=== PATIENT | female | born 1935 | race Caucasian/White ===

== ENCOUNTER 2017-02-22 10:58 | Observation (INO) | payer MEDICARE ==
--- NOTE | 2017-02-22 11:47 | PD ---
HPI Chief Complaint: Syncope/Near-Syncope Time Seen by Provider: 11:45 Travel History International Travel<30 days: No Contact w/Intl Traveler<30days: No Traveled to known affect area: No History of Present Illness HPI 81-year-old female presents emergency department via EMS for evaluation after she had a syncopal episode this morning while on the toilet trying to have a bowel movement. Patient's was helping her onto the toilet because she felt weak. Patient's caught her and she did not fall onto the floor or hit head during syncopal episode. Patient denies any injuries or pain associated with this fall. Patient has no focal neurological deficits. Patient' s son states his parents moving down from [place] approx 6 weeks ago. He has been helping take care of them. Son states she has Patient has been evaluated by her PCP for possible early onset dementia. They just recently saw Dr. Cook, the neurologist and she was found without any neuro deficits. She has no substantial cardiac history. She is denying any chest pain, shortness of breath , abdominal pain, nausea, vomiting or diarrhea at this time. [facility] Social History Tobacco Use: No Allergies-Medications (Allergen,Severity, Reaction): Coded Allergies: No Known Allergies (Unverified , 02/22/17) Reported Meds & Prescriptions Reported Meds & Active Scripts Active Reported Megestrol (Megestrol Acetate) 20 Mg Tab 10 Mg PO DAILY Prednisone 20 Mg Tab 20 Mg PO DIRECTED 40 MG twice a day x 3 days, then 20 MG daily x 3 days, then 10 MG daily x 3 days Zantac (Ranitidine HCl) 150 Mg Tab 150 Mg PO BID Levothyroxine (Levothyroxine Sodium) 25 Mcg Tab 25 Mcg PO DAILY Review of Systems Except as stated in HPI: all other systems reviewed are Neg Physical Exam Narrative GENERAL: Well-nourished, well-developed 81-year-old female patient in no acute respiratory distress. SKIN: Focused skin assessment warm/dry. HEAD: Normocephalic. Atraumatic. NEUROLOGICAL: Awake and alert. Cranial nerves II through XII intact. Motor and sensory grossly within normal limits. Five out of 5 muscle strength in all muscle groups. Normal speech. EYES: No scleral icterus. No injection or drainage. NECK: Supple, trachea midline. No JVD or lymphadenopathy. CARDIOVASCULAR: Regular rate and rhythm without murmurs, gallops, or rubs. RESPIRATORY: Breath sounds equal bilaterally. No accessory muscle use. GASTROINTESTINAL: Abdomen soft, non-tender, nondistended. MUSCULOSKELETAL: No obvious deformity, ecchymosis, erythema, cyanosis, or edema. BACK: Nontender without obvious deformity. No CVA tenderness. Data Data Last Documented VS Vital Signs Date Time Temp Pulse Resp B/P (MAP) Pulse Ox O2 Delivery O2 Flow Rate FiO2 02/22/17 14:20 92 14 133/62 (85) 96 Room Air Orders Orders Electrocardiogram (02/22/17 11:27) Complete Blood Count With Diff (02/22/17 11:27) Comprehensive Metabolic Panel (02/22/17 11:27) Magnesium (Mg) (02/22/17 11:27) Ckmb (Isoenzyme) Profile (02/22/17 11:27) Troponin I (02/22/17 11:27) Act Partial Throm Time (Ptt) (02/22/17 11:27) Urinalysis - C+S If Indicated (02/22/17 11:27) Chest, Single Ap (02/22/17 11:27) Ct Brain W/O Iv Contrast(Rout) (02/22/17 11:27) Blood Glucose (02/22/17 11:27) Ecg Monitoring (02/22/17 11:27) Iv Access Insert/Monitor (02/22/17 11:27) Oximetry (02/22/17 11:27) Urine Culture (02/22/17 11:45) Ceftriaxone Inj (Rocephin Inj) (02/22/17 13:15) Potassium Chloride (Kcl) (02/22/17 13:15) Prothrombin Time / Inr (Pt) (02/22/17 13:39) Admit Order (Ed Use Only) (02/22/17 14:31) Labs Laboratory Tests Test 02/22/17 11:41 02/22/17 11:45 02/22/17 14:04 White Blood Count 9.6 TH/MM3 Red Blood Count 3.80 MIL/MM3 Hemoglobin 11.5 GM/DL Hematocrit 34.3 % Mean Corpuscular Volume 90.2 FL Mean Corpuscular Hemoglobin 30.3 PG Mean Corpuscular Hemoglobin Concent 33.6 % Red Cell Distribution Width 15.5 % Platelet Count 254 TH/MM3 Mean Platelet Volume 6.9 FL Neutrophils (%) (Auto) 53.5 % Lymphocytes (%) (Auto) 36.9 % Monocytes (%) (Auto) 8.3 % Eosinophils (%) (Auto) 1.0 % Basophils (%) (Auto) 0.3 % Neutrophils # (Auto) 5.1 TH/MM3 Lymphocytes # (Auto) 3.5 TH/MM3 Monocytes # (Auto) 0.8 TH/MM3 Eosinophils # (Auto) 0.1 TH/MM3 Basophils # (Auto) 0.0 TH/MM3 CBC Comment DIFF FINAL Differential Comment Activated Partial Thromboplast Time 19.0 SEC Blood Urea Nitrogen 10 MG/DL Creatinine 0.85 MG/DL Random Glucose 77 MG/DL Total Protein 5.8 GM/DL Albumin 2.7 GM/DL Calcium Level 7.9 MG/DL Magnesium Level 1.9 MG/DL Alkaline Phosphatase 75 U/L Aspartate Amino Transf (AST/SGOT) 17 U/L Alanine Aminotransferase (ALT/SGPT) 19 U/L Total Bilirubin 0.4 MG/DL Sodium Level 135 MEQ/L Potassium Level 3.3 MEQ/L Chloride Level 102 MEQ/L Carbon Dioxide Level 21.3 MEQ/L Anion Gap 12 MEQ/L Estimat Glomerular Filtration Rate 64 ML/MIN Total Creatine Kinase 41 U/L Troponin I LESS THAN 0.02 NG/ML Urine Color YELLOW Urine Turbidity HAZY Urine pH 7.0 Urine Specific [place] 1.024 Urine Protein 30 mg/dL Urine Glucose (UA) NEG mg/dL Urine Ketones NEG mg/dL Urine Occult Blood SMALL Urine Nitrite NEG Urine Bilirubin NEG Urine Urobilinogen 2.0 MG/DL Urine Leukocyte Esterase LARGE Urine RBC 3 /hpf Urine WBC 11 /hpf Urine Squamous Epithelial Cells 24 /hpf Urine Amorphous Sediment OCC Urine Bacteria OCC /hpf Urine Hyaline Casts 13 /lpf Urine Mucus FEW /lpf Microscopic Urinalysis Comment CULTURE INDICATED Prothrombin Time 10.9 SEC Prothromb Time International Ratio 1.1 RATIO MDM Medical Decision Making Medical Screen Exam Complete: Yes Emergency Medical Condition: Yes Differential Diagnosis Differential diagnoses include but not limited to arrhythmia, electrolyte abnormality, vasovagal syndrome, urinary tract infection Narrative Course Patient placed on monitor, IV obtained blood work sent to the lab. CBC, CMP, magnesium, troponin, CK-MB, PT/INR, UA, chest x-ray, CT brain ordered and pending. CBC shows anemia with hemoglobin 11.5, otherwise no acute abnormality CMP shows mild hypokalemia at 3.3, 30 mEq KCl by mouth given Mag within normal limits at 1.9 Trop less than 0.02 CK-MB 41. UA is reflective of a UTI with WBCs, bacteria and esterase. 1G IV Rocephin ordered. Based on patient's symptoms, clinical presentation, lab results, radiological results, vital sign review and physical exam it would be prudent to admit the patient to the hospital for further evaluation related to her age coupled with syncope and the UTI. Dr. Ruiz accepts admission. Patient admitted for observation at this time. Diagnosis Primary Impression: Syncope Qualified Codes: R55 - Syncope and collapse Additional Impression: UTI (urinary tract infection) Qualified Codes: N39.0 - Urinary tract infection, site not specified Admitting Information Admitting Physician Requests: Observation Giovanna Rios Feb 22, 2017 11:46
[2017-02-22 11:53] LABS: AUTOMATED NEUTROPHIL # 5.1 TH/MM3 (1.8-7.7); BASOPHIL % 0.3 % (0.0-2.0); EOSINOPHIL # 0.1 TH/MM3 (0-0.4); HEMATOCRIT 34.3 % (35.0-46.0); HEMOGLOBIN 11.5 GM/DL (11.6-15.3); LYMPH % 36.9 % (9.0-44.0); LYMPHOCYTE # 3.5 TH/MM3 (1.0-4.8); MEAN CELL VOLUME 90.2 FL (80.0-100.0); MEAN CORPUSCULAR HEMOGLOBIN 30.3 PG (27.0-34.0); MEAN CORPUSCULAR HGB CONC 33.6 % (32.0-36.0); MEAN PLATELET VOLUME 6.9 FL (7.0-11.0); MONO % 8.3 % (0.0-8.0); MONOCYTE # 0.8 TH/MM3 (0-0.9); NEUT % 53.5 % (16.0-70.0); PLATELET COUNT 254 TH/MM3 (150-450); RED CELL DISTRIBUTION WIDTH 15.5 % (11.6-17.2); WHITE BLOOD COUNT 9.6 TH/MM3 (4.0-11.0)
[2017-02-22 12:10] LABS: ALBUMIN 2.7 GM/DL (3.4-5.0); AST (GOT) 17 U/L (15-37); BICARBONATE 21.3 MEQ/L (21.0-32.0); BLOOD UREA NITROGEN 10 MG/DL (7-18); CALCIUM 7.9 MG/DL (8.5-10.1); CHLORIDE 102 MEQ/L (98-107); GLUCOSE,RANDOM 77 MG/DL (74-106); MAGNESIUM 1.9 MG/DL (1.5-2.5); SODIUM (NA) 135 MEQ/L (136-145)
[2017-02-22 12:14] LABS: ALKALINE PHOSPHATASE 75 U/L (45-117); ALT (GPT) 19 U/L (10-53); CREATININE 0.85 MG/DL (0.50-1.00); GLOMERULAR FILTRATION RATE 64 ML/MIN (>89); TOTAL BILIRUBIN ADULT 0.4 MG/DL (0.2-1.0); TOTAL PROTEIN 5.8 GM/DL (6.4-8.2); TROPONIN I LESS THAN 0.02 NG/ML (0.02-0.05)
[2017-02-22 12:26] VITALS: BP 164/68; PULSE 98; RESP 17; O2SAT 100
[2017-02-22 12:30] VITALS: BP 164/68; PULSE 98; RESP 17; O2SAT 100
[2017-02-22] MEDS ORDERED: ZANT150T2 PO (12:33)
[2017-02-22] MEDS ORDERED: MEGE20TA PO (12:33)
[2017-02-22] MEDS ORDERED: PRED20 PO (12:33)
[2017-02-22] MEDS ORDERED: LEVO25TA4 PO (12:33)
[2017-02-22 12:37] LABS: AMORPHOUS SEDIMENT, URINE OCC; BACTERIA, URINE OCC /hpf; BILIRUBIN, URINE NEG (NEG); BLOOD, URINE SMALL (NEG); GLUCOSE,URINE NEG (NEG); HYALINE CAST, URINE 13 /lpf (RARE); KETONE, URINE NEG (NEG); MUCUS URINE FEW /lpf (OCC); NITRITE,URINE NEG (NEG); SQUAMOUS EPITHELIAL CELL URINE 24 /hpf (0-5); URINE COLOR YELLOW (YELLW/STRAW); URINE LEUKOCYTE ESTERASE LARGE (NEG)
--- NOTE | 2017-02-22 12:37 | RADRPT ---
EXAM DATE/TIME: 02/22/2017 11:41 [facility] COMPARISON: No previous studies available for comparison. INDICATIONS : Syncope, shortness of breath. MEDICAL HISTORY : None. SURGICAL HISTORY : None. ENCOUNTER: Initial ACUITY: 1 day PAIN SCORE: 0/10 LOCATION: Bilateral chest FINDINGS: A single view of the chest demonstrates the lungs to be symmetrically and mildly hyperaerated without evidence of mass, infiltrate or effusion. The cardiomediastinal contours are unremarkable. Osseous structures are intact. CONCLUSION: The lungs are clear. Rudy Howard MD on February 22, 2017 at 12:34 Board Certified Radiologist. This report was verified electronically.
--- NOTE | 2017-02-22 12:50 | RADRPT ---
EXAM DATE/TIME: 02/22/2017 12:21 [facility] COMPARISON: No previous studies available for comparison. INDICATIONS : Dizziness. RADIATION DOSE: 56.35 CTDIvol (mGy) MEDICAL HISTORY : None SURGICAL HISTORY : None. ENCOUNTER: Initial ACUITY: 1 day PAIN SCALE: 0/10 LOCATION: cranial TECHNIQUE: Multiple contiguous axial images were obtained of the head. Using automated exposure control and adj ustment of the mA and/or kV according to patient size, radiation dose was kept as low as reasonably a chievable to obtain optimal diagnostic quality images. DICOM format image data is available electro nically for review and comparison. FINDINGS: CEREBRUM: The ventricles are normal for age. No evidence of midline shift, mass lesion, hemorrhage or acute in farction. Decreased attenuation in the supratentorial white matter is characteristic of ischemic hernandez nge. No extra-axial fluid collections are seen. POSTERIOR FOSSA: The cerebellum and brainstem are intact. The 4th ventricle is midline. The cerebellopontine angle i s unremarkable. EXTRACRANIAL: The visualized portion of the orbits is intact. SKULL: The calvaria is intact. No evidence of skull fracture. CONCLUSION: 1. Age-appropriate ischemic atrophy. 2. No acute findings in the brain. Rudy Howard MD on February 22, 2017 at 12:48 Board Certified Radiologist. This report was verified electronically.
[2017-02-22] MEDS ORDERED: cefTRIAXone INJ 1,000 MG in SODIUM CHLORIDE 0.9% INJ 100 ML IV ONE (13:15)
[2017-02-22] MEDS ORDERED: POTASSIUM CHLORIDE 10 MEQ CONTROLLED RELEASE TAB PO ONE (13:15)
[2017-02-22 14:20] VITALS: BP 133/62; PULSE 92; RESP 14; O2SAT 96
[2017-02-22 14:26] LABS: INTERNATIONAL NORMALIZED RATIO 1.1 RATIO; PROTHROMBIN TIME - PATIENT 10.9 SEC (9.8-11.6)
[2017-02-22] MEDS ORDERED: MAGNESIUM HYDROXIDE SUSP 30 ML CUP PO PRN (14:45)
[2017-02-22] MEDS ORDERED: NALOXONE HCL 0.4 MG/ML AMP IV PUSH PRN (14:45)
[2017-02-22] MEDS ORDERED: SODIUM CHLORIDE 0.9% FLUSH 10 ML FLUSH IV FLUSH PRN (14:45)
[2017-02-22] MEDS ORDERED: ONDANSETRON HCL 4 MG/2 ML VIAL IVP PRN (14:45)
[2017-02-22] MEDS: SODIUM CHLOR 0.9% 1000 ML INJ 1,000 ML IV SCH (16:28)
[2017-02-22 16:45] LABS: TROPONIN I 0.03 NG/ML (0.02-0.05)
[2017-02-22 16:47] VITALS: BP 157/67; PULSE 85; RESP 18; TEMP 97.6; O2SAT 99
--- NOTE | 2017-02-22 17:01 | HHI.HP ---
[facility] Kailash Laurent MD Admission Diagnosis syncope Diagnoses: (1) UTI (urinary tract infection) Diagnosis: Principal (2) Syncope Diagnosis: Principal Travel History International Travel<30 Days: No Contact w/Intl Traveler <30 Da: No Traveled to Known Affected Are: No History of Present Illness Mrs. Gloria is an 81-year-old female. She came into the hospital today after having a syncopal episode at home. Patient's says patient may have been down approximately 1 to 3 minutes. For several weeks she has been feeling weak and she has suspicions of having polymyalgia rheumatica at baseline. She felt ill and had to go to the bathroom. When she was on the toilet she had an episode of diarrhea and then nausea. She did not vomit but she became syncopal and this is where she lost consciousness. Pulmonary workup shows no abnormal heart rhythm. She does have a urinary tract infection this may be contributory. Hypothyroidism is present at baseline and this could be contributory also. Additionally, a vasovagal etiology suspected given the correlation with defecation and nausea. Review of Systems Constitutional: DENIES: Fever, Chills, Change in appetite Eyes: DENIES: Blurred vision, Diplopia, Eye inflammation Ears, nose, mouth, throat: DENIES: Hearing loss, Vertigo, Nasal discharge Respiratory: DENIES: Cough, Wheezing, Shortness of breath Cardiovascular: COMPLAINS OF: Syncope, DENIES: Chest pain, Palpitations Gastrointestinal: COMPLAINS OF: Diarrhea, DENIES: Abdominal pain, Black stools , Bloody stools Musculoskeletal: COMPLAINS OF: Muscle aches, Stiffness, DENIES: Joint pain, Joint Swelling Integumentary: DENIES: Abnormal pigmentation, Pruritus, Rash, Nail changes Hematologic/lymphatic: DENIES: Bruising, Lymphadenopathy Immunologic/allergic: DENIES: Eczema, Urticaria Neurologic: DENIES: Abnormal gait, Headache, Paresthesias Psychiatric: DENIES: Anxiety, Confusion, Hallucinations Past Family Social History Past Medical History Hypothyroidism Poor appetite Possible polymyalgia rheumatica Suspected early dementia *Esophageal reflux disease Past Surgical History History of cholecystectomy Reported Medications Reported Meds & Active Scripts Active Reported Megestrol (Megestrol Acetate) 20 Mg Tab 10 Mg PO DAILY Prednisone 20 Mg Tab 20 Mg PO DIRECTED 40 MG twice a day x 3 days, then 20 MG daily x 3 days, then 10 MG daily x 3 days Zantac (Ranitidine HCl) 150 Mg Tab 150 Mg PO BID Levothyroxine (Levothyroxine Sodium) 25 Mcg Tab 25 Mcg PO DAILY Allergies: Coded Allergies: No Known Allergies (Unverified , 02/22/17) Active Ordered Medications Administered Medications Medications (Trade) Dose Ordered Sig/Juan Route PRN Reason Start Time Stop Time Status Last Admin Dose Admin Sodium Chloride 1,000 ml @ 100 mls/hr Q10H IV 02/22/17 15:00 02/22/17 16:28 Family History Breast cancer in sister Hypertension in father Social History No history of smoking, alcohol abuse, or illicit drug abuse Physical Exam Vital Signs Vital Signs Date Time Temp Pulse Resp B/P (MAP) Pulse Ox O2 Delivery O2 Flow Rate FiO2 02/22/17 16:47 97.6 85 18 157/67 (97) 99 02/22/17 14:20 92 14 133/62 (85) 96 Room Air 02/22/17 12:30 98 17 164/68 (100) 100 Room Air 02/22/17 12:26 98 17 164/68 (100) 100 Room Air Physical Exam GENERAL: NAD, A&Ox2 HEAD: Normocephalic. NECK: Supple, trachea midline. No lymphadenopathy. EYES: No scleral icterus. No injection or drainage. CARDIOVASCULAR: Regular rate and rhythm without murmurs, gallops, or rubs. RESPIRATORY: Breath sounds equal bilaterally. No accessory muscle use. GASTROINTESTINAL: Abdomen soft, non-tender, nondistended. MUSCULOSKELETAL: No cyanosis, or edema. SKIN: Warm and dry. NEURO: No focal neurological deficitis. Laboratory Laboratory Tests Test 02/22/17 11:41 02/22/17 11:45 02/22/17 14:04 02/22/17 15:45 White Blood Count 9.6 Red Blood Count 3.80 Hemoglobin 11.5 Hematocrit 34.3 Mean Corpuscular Volume 90.2 Mean Corpuscular Hemoglobin 30.3 Mean Corpuscular Hemoglobin Concent 33.6 Red Cell Distribution Width 15.5 Platelet Count 254 Mean Platelet Volume 6.9 Neutrophils (%) (Auto) 53.5 Lymphocytes (%) (Auto) 36.9 Monocytes (%) (Auto) 8.3 Eosinophils (%) (Auto) 1.0 Basophils (%) (Auto) 0.3 Neutrophils # (Auto) 5.1 Lymphocytes # (Auto) 3.5 Monocytes # (Auto) 0.8 Eosinophils # (Auto) 0.1 Basophils # (Auto) 0.0 CBC Comment DIFF FINAL Differential Comment Activated Partial Thromboplast Time 19.0 Blood Urea Nitrogen 10 Creatinine 0.85 Random Glucose 77 Total Protein 5.8 Albumin 2.7 Calcium Level 7.9 Magnesium Level 1.9 Alkaline Phosphatase 75 Aspartate Amino Transf (AST/SGOT) 17 Alanine Aminotransferase (ALT/SGPT) 19 Total Bilirubin 0.4 Sodium Level 135 Potassium Level 3.3 Chloride Level 102 Carbon Dioxide Level 21.3 Anion Gap 12 Estimat Glomerular Filtration Rate 64 Total Creatine Kinase 41 33 Troponin I LESS THAN 0.02 0.03 Urine Color YELLOW Urine Turbidity HAZY Urine pH 7.0 Urine Specific [place] 1.024 Urine Protein 30 Urine Glucose (UA) NEG Urine Ketones NEG Urine Occult Blood SMALL Urine Nitrite NEG Urine Bilirubin NEG Urine Urobilinogen 2.0 Urine Leukocyte Esterase LARGE Urine RBC 3 Urine WBC 11 Urine Squamous Epithelial Cells 24 Urine Amorphous Sediment OCC Urine Bacteria OCC Urine Hyaline Casts 13 Urine Mucus FEW Microscopic Urinalysis Comment CULTURE INDICATED Prothrombin Time 10.9 Prothromb Time International Ratio 1.1 Date/Time Source Procedure Growth Status 02/22/17 11:45 Urine Random Urine Urine Culture Pending Received Result Diagram: 02/22/17 1141 02/22/17 1141 Caprini VTE Risk Assessment Caprini VTE Risk Assessment: No/Low Risk (score <= 1) Caprini Risk Assessment Model Point Value = 1 Point Value = 2 Point Value = 3 Point Value = 5 Age 41-60 Minor surgery BMI > 25 kg/m2 Swollen legs Varicose veins or History of unexplained or recurrent spontaneous Oral contraceptives or hormone replacement Sepsis (< 1 month) Serious lung disease, including pneumonia (< 1 month) Abnormal pulmonary function Acute myocardial infarction Congestive heart failure (< 1 month) History of inflammatory bowel disease Medical patient at bed rest Age 61-74 Arthroscopic surgery Major open surgery (> 45 min) Laparoscopic surgery (> 45 min) Malignancy Confined to bed (> 72 hours) Immobilizing plaster cast Central venous access Age >= 75 History of VTE Family history of VTE Factor V Leiden Prothrombin [id number] Lupus anticoagulant Anticardiolipin antibodies Elevated serum homocysteine Heparin-induced thrombocytopenia Other congenital or acquired thrombophilia Stroke (< 1 month) Elective arthroplasty Hip, pelvis, or leg fracture Acute spinal cord injury (< 1 month) Prophylaxis Regimen Total Risk Factor Score Risk Level Prophylaxis Regimen 0-1 Low Early ambulation 2 Moderate Order ONE of the following: *Sequential Compression Device (SCD) *Heparin 5000 units SQ BID 3-4 Higher Order ONE of the following medications: *Heparin 5000 units SQ TID *Enoxaparin/Lovenox 40 mg SQ daily (WT < 150 kg, CrCl > 30 mL/min) *Enoxaparin/Lovenox 30 mg SQ daily (WT < 150 kg, CrCl > 10-29 mL/min) *Enoxaparin/Lovenox 30 mg SQ BID (WT < 150 kg, CrCl > 30 mL/min) AND/OR *Sequential Compression Device (SCD) 5 or more Highest Order ONE of the following medications: *Heparin 5000 units SQ TID (Preferred with Epidurals) *Enoxaparin/Lovenox 40 mg SQ daily (WT < 150 kg, CrCl > 30 mL/min) *Enoxaparin/Lovenox 30 mg SQ daily (WT < 150 kg, CrCl > 10-29 mL/min) *Enoxaparin/Lovenox 30 mg SQ BID (WT < 150 kg, CrCl > 30 mL/min) AND *Sequential Compression Device (SCD) Assessment and Plan Problem List: (1) UTI (urinary tract infection) ICD Code: N39.0 - Urinary tract infection, site not specified Status: Acute (2) Syncope ICD Code: R55 - Syncope and collapse Status: Acute Assessment and Plan 81-year-old female admitted secondary to syncope, with UTI Urinary tract infection Continue Rocephin Follow urine culture UTI may be contributory to patient's syncopal episode Syncope 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 cardiac enzymes Monitor serial EKGs IV hydration Evaluate with carotid ultrasound Taking orthostatic blood pressure checks Based on history etiology may be vasovagal with contributory factors such as UTI and a possible underlying polymyalgia rheumatica Possible polymyalgia rheumatica Continue prednisone Gastroesophageal reflux disease Continue Zantac Hypothyroidism Check thyroid levels Continue supplement DVT prophylaxis SCDs Problem Qualifiers (1) UTI (urinary tract infection): Qualified Codes: N39.0 - Urinary tract infection, site not specified (2) Syncope: Qualified Codes: R55 - Syncope and collapse Sean Ruiz MD Feb 22, 2017 17:00
[2017-02-22] MEDS ORDERED: PILL SPLITTER OTHER PRN (17:15)
--- NOTE | 2017-02-22 17:16 | RADRPT ---
EXAM DATE/TIME: 02/22/2017 15:04 [facility] COMPARISON: No previous studies available for comparison. INDICATIONS : Syncope. MEDICAL HISTORY : Thyroid disease. Dementia. GERD. Depression. SURGICAL HISTORY : Cholecystectomy. ENCOUNTER: Initial ACUITY: 1 day PAIN SCORE: 0/10 LOCATION: Bilateral neck PEAK SYSTOLIC VELOCITIES (cm/sec): ICA/CCA RATIO: Right: 0.9 Left: 1.2 ICA: Right: 86 Left: 146 CCA: Right: 95 Left: 126 ECA: Right: 125 Left: 96 VERTEBRAL: Right: 37 antegrade Left: 62 antegrade Elevated flow velocities and ICA/CCA ratios have been found to correlate with increased degrees of vessel stenosis, calculated as percentage of diameter relative to a normal segment of distal ICA/CCA FINDINGS: RIGHT CAROTID: No significant stenosis is visualized. The waveforms are within normal limits. LEFT CAROTID: No significant stenosis is visualized. The waveforms are within normal limits. VERTEBRAL ARTERIES: Antegrade flow is seen in both vertebral arteries. CONCLUSION: Minimal plaque formation in the left carotid bulb and proximal internal carotid artery with hemodynam ic profile characteristic of less than 50% stenosis bilaterally. Rudy Howard MD on February 22, 2017 at 17:12 Board Certified Radiologist. This report was verified electronically.
[2017-02-22] MEDS: LACTOBACILLUS ACIDOPHILUS TAB PO SCH (18:05)
[2017-02-22 19:28] VITALS: BP_SYST 139; BP_SYST 140; BP_SYST 177; BP_DIAS 67; BP_DIAS 69; BP_DIAS 77; PULSE 94; RESP 18; TEMP 98; O2SAT 99
[2017-02-22] MEDS: FAMOTIDINE 20 MG TAB PO SCH (20:51)
[2017-02-22] MEDS: SODIUM CHLORIDE 0.9% FLUSH 10 ML FLUSH IV FLUSH SCH (20:52)
[2017-02-22 21:56] LABS: TROPONIN I 0.04 NG/ML (0.02-0.05)
[2017-02-23 00:11] VITALS: BP 138/66; PULSE 99; RESP 18; TEMP 98.2; O2SAT 98
[2017-02-23] MEDS: SODIUM CHLOR 0.9% 1000 ML INJ 1,000 ML IV SCH (01:28)
[2017-02-23 03:35] VITALS: BP 147/71; PULSE 79; RESP 18; TEMP 98.1; O2SAT 97
[2017-02-23] MEDS ORDERED: LEVOTHYROXINE SODIUM 25 MCG TAB PO SCH (06:00)
[2017-02-23 07:46] VITALS: BP 162/72; PULSE 96; RESP 22; TEMP 98.1; O2SAT 99
[2017-02-23 08:00] VITALS: PULSE 89
[2017-02-23 08:03] VITALS: BP_SYST 106; BP_SYST 127; BP_DIAS 53; BP_DIAS 60; PULSE 116
[2017-02-23 08:30] LABS: AUTOMATED NEUTROPHIL # 5.4 TH/MM3 (1.8-7.7); BASOPHIL % 0.1 % (0.0-2.0); EOSINOPHIL # 0.1 TH/MM3 (0-0.4); EOSINOPHIL % 1.4 % (0.0-4.0); HEMATOCRIT 35.8 % (35.0-46.0); LYMPH % 22.1 % (9.0-44.0); LYMPHOCYTE # 1.8 TH/MM3 (1.0-4.8); MEAN CELL VOLUME 90.6 FL (80.0-100.0); MEAN CORPUSCULAR HEMOGLOBIN 30.4 PG (27.0-34.0); MEAN CORPUSCULAR HGB CONC 33.6 % (32.0-36.0); MEAN PLATELET VOLUME 6.8 FL (7.0-11.0); MONO % 9.2 % (0.0-8.0); MONOCYTE # 0.7 TH/MM3 (0-0.9); NEUT % 67.2 % (16.0-70.0); PLATELET COUNT 259 TH/MM3 (150-450); RED BLOOD COUNT 3.95 MIL/MM3 (4.00-5.30); RED CELL DISTRIBUTION WIDTH 15.2 % (11.6-17.2); WHITE BLOOD COUNT 8.1 TH/MM3 (4.0-11.0)
[2017-02-23] MEDS: FAMOTIDINE 20 MG TAB PO SCH (08:48)
[2017-02-23] MEDS: LACTOBACILLUS ACIDOPHILUS TAB PO SCH (08:48)
[2017-02-23] MEDS: SODIUM CHLORIDE 0.9% FLUSH 10 ML FLUSH IV FLUSH SCH (08:49)
[2017-02-23 08:51] LABS: THYROXINE (T4) 10.3 MCG/DL (4.8-13.9)
[2017-02-23 09:00] LABS: FREE T3 1.87 PG/ML (2.18-3.98)
[2017-02-23] MEDS ORDERED: MEGESTROL ACETATE 40 MG TAB PO SCH (09:00)
[2017-02-23] MEDS ORDERED: predniSONE 20 MG TAB PO SCH (09:00)
[2017-02-23] MEDS ORDERED: DIGO0.12 PO (11:38)
[2017-02-23] MEDS ORDERED: BACT800T5 PO (11:38)
[2017-02-23] MEDS ORDERED: LACTTAB8 PO (11:38)
[2017-02-23] MEDS ORDERED: POTA10CA PO (11:38)
--- NOTE | 2017-02-23 11:43 | HHI.DS ---
Discharge Summary Admission Date Feb 22, 2017 at 14:33 Discharge Date: Feb 23, 2017 Admitting Diagnosis syncope (1) UTI (urinary tract infection) ICD Code: N39.0 - Urinary tract infection, site not specified Diagnosis: Principal Status: Acute (2) Syncope ICD Code: R55 - Syncope and collapse Diagnosis: Principal Status: Acute Procedures None Brief History - From Admission Mrs. Gloria is an 81-year-old female. She came into the hospital today after having a syncopal episode at home. Patient's says patient may have been down approximately 1 to 3 minutes. For several weeks she has been feeling weak and she has suspicions of having polymyalgia rheumatica at baseline. She felt ill and had to go to the bathroom. When she was on the toilet she had an episode of diarrhea and then nausea. She did not vomit but she became syncopal and this is where she lost consciousness. Pulmonary workup shows no abnormal heart rhythm. She does have a urinary tract infection this may be contributory. Hypothyroidism is present at baseline and this could be contributory also. Additionally, a vasovagal etiology suspected given the correlation with defecation and nausea. CBC/BMP: 02/23/17 0746 02/22/17 1141 Significant Findings Laboratory Tests Test 02/22/17 11:41 02/22/17 11:45 02/22/17 14:04 02/22/17 15:45 Red Blood Count 3.80 MIL/MM3 (4.00-5.30) Hemoglobin 11.5 GM/DL (11.6-15.3) Hematocrit 34.3 % (35.0-46.0) Mean Platelet Volume 6.9 FL (7.0-11.0) Monocytes (%) (Auto) 8.3 % (0.0-8.0) Activated Partial Thromboplast Time 19.0 SEC (24.3-30.1) Total Protein 5.8 GM/DL (6.4-8.2) Albumin 2.7 GM/DL (3.4-5.0) Calcium Level 7.9 MG/DL (8.5-10.1) Sodium Level 135 MEQ/L (136-145) Potassium Level 3.3 MEQ/L (3.5-5.1) Estimat Glomerular Filtration Rate 64 ML/MIN (>89) Troponin I LESS THAN 0.02 NG/ML Urine Turbidity HAZY (CLEAR) Urine Protein 30 mg/dL (NEG-TRACE) Urine Occult Blood SMALL (NEG) Urine Leukocyte Esterase LARGE (NEG) Urine WBC 11 /hpf (0-5) Urine Bacteria OCC /hpf (NONE) Urine Mucus FEW /lpf (OCC) Test 02/22/17 20:45 02/23/17 07:46 Red Blood Count 3.95 MIL/MM3 (4.00-5.30) Mean Platelet Volume 6.8 FL (7.0-11.0) Monocytes (%) (Auto) 9.2 % (0.0-8.0) Free Triiodothyronine (T3) pg/dL 1.87 PG/ML (2.18-3.98) Hospital Course Mrs. Gloria is an 81-year-old female. She was admitted secondary to a syncopal episode. She has a baseline of intermittent recurrent tachycardia. This may have been contributory. However we find that she has orthostatic hypotension. This could also be contributory. A vasovagal element was present as this episode occurred after she quickly got up to sit on the toilet and had a episode of diarrhea prior to passing out. No recurrence of syncope or presyncope during this stay. On EKG she did demonstrate intermittent recurrent tachycardia. She'll be started on digoxin for improved rate control as beta blockers and calcium channel blockers are likely to accentuate her orthostatic hypotension. She also had a mild UTI which may be contributory. She's been cautioned about position changes. Additional treatments provided at this day of her potassium supplementation, antibiotics, and probiotics. Carotid ultrasounds showed no contributory pathology. At this point she is medically stable for discharge to home. Pt Condition on Discharge: Stable Discharge Disposition: Discharge Home Discharge Time: <= 30 minutes Discharge Instructions DIET: Follow Instructions for: As Tolerated, No Restrictions Activities you can perform: Regular-No Restrictions Follow up Referrals: PCP Follow-up - 2 Weeks New Medications: Digoxin (Digoxin) 0.125 Mg Tab 0.125 MG PO DAILY for Regulate Heart Beat, #30 TAB 0 Refills Lactobacillus Acidophilus (Lactobacillus Acidophilus) 1 Billion Cell Tab 1 TAB PO TIDAC for Nutritional Supplement, #30 TAB 0 Refills Potassium Chloride ER (Potassium Chloride ER) 10 Meq Cap 10 MEQ PO DAILY for Electrolyte Replacement, #30 CAP 0 Refills Sulfamethoxazole-Trimethoprim (Bactrim DS) 800-160 Mg Tab 1 TAB PO BID for Infection, #10 TAB 0 Refills Continued Medications: Levothyroxine (Levothyroxine) 25 Mcg Tab 25 MCG PO DAILY for Thyroid, #30 TAB 0 Refills Megestrol (Megestrol) 20 Mg Tab 10 MG PO DAILY, TAB 0 Refills Prednisone (Prednisone) 20 Mg Tab 20 MG PO DIRECTED for Inflammation, #11 TAB 0 Refills 40 MG twice a day x 3 days, then 20 MG daily x 3 days, then 10 MG daily x 3 days Ranitidine (Zantac) 150 Mg Tab 150 MG PO BID for Reduce Stomach Acid, #60 TAB 0 Refills Sean Ruiz MD Feb 23, 2017 11:43
[2017-02-23] MEDS ORDERED: cefTRIAXone INJ 1,000 MG in SODIUM CHLORIDE 0.9% INJ 100 ML IV SCH (13:00)
--- NOTE | 2017-02-24 14:11 | EKG ---
Date Performed: 02/23/2017 Time Performed: 03:41:09 PTAGE: 81 years EKG: Sinus rhythm NONSPECIFIC ST-T WAVE CHANGES POOR R WAVE PROGRESSION CANNOT EXCLUDE OLD ANTEROSEPTAL WY Very slight nonspecific ST changes improved from the prior tracing NORMAL ECG PREVIOUS TRACING : 02/22/2017 11.28 DOCTOR: Ryan Stratton Interpretating Date/Time 02/24/2017 14:10:32
--- NOTE | 2017-02-24 14:11 | EKG ---
Date Performed: 02/22/2017 Time Performed: 11:28:47 PTAGE: 81 years EKG: Sinus rhythm NONSPECIFIC ST-T WAVE CHANGES POOR R WAVE PROGRESSION CANNOT EXCLUDE OLD ANTEROSEPTAL VA BUT NO ROBERSON GE FROM THE PRIOR TRACING ABNORMAL ECG PREVIOUS TRACING : 07/20/1992 09.09 DOCTOR: Ryan Stratton Interpretating Date/Time 02/24/2017 14:09:34
== END 2017-02-23 15:40 | disposition home or self-care (01) ==
LOC: NEPC 10:58 → NEDA 14:33 → NEPHCDU 16:20
PROVIDERS: ADMIT Hospitalist; ATTEND Hospitalist
DX: N39.0 Urinary tract infection, site not specified (principal); K21.9 Gastro-esophageal reflux disease without esophagitis; E03.9 Hypothyroidism, unspecified; R19.7 Diarrhea, unspecified; R11.0 Nausea; R00.0 Tachycardia, unspecified; I95.1 Orthostatic hypotension; B96.89 Other specified bacterial agents as the cause of diseases classified elsewhere; I67.82 Cerebral ischemia; Z79.899 Other long term (current) drug therapy; D64.9 Anemia, unspecified; E87.6 Hypokalemia
CPT/HCPCS: 70450; 71010; 80053; 81001; 82550; 83735; 84436; 84443; 84481; 84484; 85025; 85610; 85730; 87086; 93005; 93880; 96361; 96365; 96375; 97162; 99285; G0378; G8987; G8988; J0696; J2405; J7030; J7512

== ENCOUNTER 2017-08-08 17:53 | Emergency (ER) | payer MEDICARE ==
[~2017-08-08] VITALS: Ht 157.5 cm; Wt 56.5 kg
[~2017-08-08 17:53] MED LIST: BACT800T5 PO; DIGO0.12 PO; LACTTAB8 PO; LEVO25TA4 PO; MEGE20TA PO; POTA10CA PO; PRED20 PO; ZANT150T2 PO
[2017-08-08 17:55] VITALS: BP 203/88; PULSE 86; RESP 16; TEMP 98.3; O2SAT 97
--- NOTE | 2017-08-08 18:11 | PD ---
HPI Chief Complaint: Injury Time Seen by Provider: 18:01 Travel History International Travel<30 days: No Contact w/Intl Traveler<30days: No Traveled to known affect area: No History of Present Illness HPI 82-year-old female with a history of PMR and unsteady gait presents in the emergency department for evaluation of right hip and right shoulder pain that started after a fall today. Says that she was walking in her house when her foot slipped and she believes she lost her footing and fell landing on her right shoulder and hip. She denies head trauma or loss of consciousness. Denies blurred vision. She was able to stand up after the incident. She denies neck or back pain. She denies numbness, tingling or weakness of the extremities. Patient points to the anterior aspect of the shoulder and says the pain radiates somewhat into the trapezius. Says the pain is worse with movement of her shoulder and decreases with rest. In addition, patient points to the inferior aspect of the hip that is tender to palpation. Patient is able to stand up spontaneously without significant pain. Note that patient takes prednisone daily for her polymyalgia rheumatica. She has no other complaints today. PFSH Past Medical History Hx Anticoagulant Therapy: No Depression: Yes Dementia: Yes Diabetes: No Diminished Hearing: No Endocrine: Yes GERD: Yes Genitourinary: Yes (UTI CURRENTLY) Musculoskeletal: Yes (POSSIBLE POLYMYALGIA RHEUMATICA) Neurologic: Yes (DEMENTIA) Thyroid Disease: No (HYPOTHYROID) ?: Not Menopausal: Yes : 3 Para: 2 Miscarriage: 1 Past Surgical History Cholecystectomy: Yes Social History Alcohol Use: No Tobacco Use: No Substance Use: No Allergies-Medications (Allergen,Severity, Reaction): Coded Allergies: No Known Allergies (Unverified , 08/08/17) Reported Meds & Prescriptions Reported Meds & Active Scripts Active Digoxin 0.125 Mg Tab 0.125 Mg PO DAILY Reported Potassium Chloride ER (Potassium Chloride) 20 Meq Tab 20 Meq PO DAILY Omeprazole 20 Mg Tab 20 Mg PO DAILY Prednisone 20 Mg Tab 10 Mg PO DIRECTED 40 MG twice a day x 3 days, then 20 MG daily x 3 days, then 10 MG daily x 3 days Levothyroxine (Levothyroxine Sodium) 25 Mcg Tab 25 Mcg PO DAILY Review of Systems Except as stated in HPI: all other systems reviewed are Neg Physical Exam Narrative GENERAL: Well-developed well-nourished no apparent distress, pt stands with assistance. SKIN: Focused skin assessment warm/dry. No areas of ecchymosis over the shoulder or hip HEAD: Atraumatic. Normocephalic. EYES: Pupils equal and round. No scleral icterus. No injection or drainage. ENT: No nasal bleeding or discharge. Mucous membranes pink and moist. NECK: Trachea midline. No JVD. CARDIOVASCULAR: Regular rate and rhythm. No murmur appreciated. RESPIRATORY: No accessory muscle use. Clear to auscultation. Breath sounds equal bilaterally. GASTROINTESTINAL: Abdomen soft, non-tender, nondistended. Hepatic and splenic margins not palpable. MUSCULOSKELETAL: No obvious deformities. No clubbing. No cyanosis. No edema. Right hip- TTP lateral aspect without crepitus or deformities. Right shoulder- TTP anterior aspect of shoulder with mildly limited ROM although relatively good with apleys scratch test. NEUROLOGICAL: Awake and alert. No obvious cranial nerve deficits. Motor grossly within normal limits. Normal speech. PSYCHIATRIC: Appropriate mood and affect; insight and judgment normal. Data Data Last Documented VS Vital Signs Date Time Temp Pulse Resp B/P (MAP) Pulse Ox O2 Delivery O2 Flow Rate FiO2 08/08/17 17:55 98.3 86 16 203/88 (126) 97 Orders Orders Shoulder, Complete (>2vws) (08/08/17 ) Hip, Uni(Ap&Lat) W Ap Pelvis (08/08/17 ) Ed Discharge Order (08/08/17 18:54) MDM Medical Decision Making Medical Screen Exam Complete: Yes Emergency Medical Condition: Yes Differential Diagnosis Right hip and right shoulder contusion, bursitis, cellulitis, fracture, osteonecrosis, avascular necrosis, sprain, strain Narrative Course 82-year-old female with a history of PMR and unsteady gait presents in the emergency department for evaluation of right hip and right shoulder pain that started after a fall today. Says that she was walking in her house when her foot slipped and she believes she lost her footing and fell landing on her right shoulder and hip. She denies head trauma or loss of consciousness. Denies blurred vision. She was able to stand up after the incident. She denies neck or back pain. She denies numbness, tingling or weakness of the extremities. Patient points to the anterior aspect of the shoulder and says the pain radiates somewhat into the trapezius. Says the pain is worse with movement of her shoulder and decreases with rest. In addition, patient points to the inferior aspect of the hip that is tender to palpation. Patient is able to stand up spontaneously without significant pain. Note that patient takes prednisone daily for her polymyalgia rheumatica. She has no other complaints today. Vital signs are stable. I have a low suspicion of fracture however, because of her history of chronic steroid use will order x-rays. Last Impressions Shoulder X-Ray 08/08/17 0000 Signed Impressions: CONCLUSION: No acute fracture Hip and Pelvis X-Ray 08/08/17 0000 Signed Impressions: CONCLUSION: Degenerative changes without fracture No evidence of fracture on imaging studies today. Patient be discharged advised to follow-up with her primary care physician. Advised to continue range of motion exercises of her shoulder and hip. Tylenol or Motrin per package instructions for pain. Return for worsening or persistent symptoms. Diagnosis Primary Impression: Shoulder contusion Qualified Codes: S40.011A - Contusion of right shoulder, initial encounter Additional Impression: Contusion, hip Qualified Codes: S70.01XA - Contusion of right hip, initial encounter Referrals: Primary Care Physician Additional Instructions: Use ice or heat for symptom relief. If no contraindications, you may use Tylenol or Motrin per package instructions for your pain. If symptoms persist or worsen, return to the emergency department. Follow up with your primary care physician within 2 days. Continue to move your shoulder and hip to reduce complications. Disposition: 01 DISCHARGE HOME Condition: Stable Karena Mitchell Aug 08, 2017 18:11
[2017-08-08] MEDS ORDERED: OMEP20TA93 PO (18:19)
[2017-08-08] MEDS ORDERED: POTA-163 PO (18:20)
--- NOTE | 2017-08-08 18:48 | RADRPT ---
EXAM DATE: 08/08/2017 6:40 PM EDT AGE/SEX: 82 years / Female INDICATIONS: Right shoulder pain after fall. CLINICAL DATA: This is the patient's initial encounter. Patient reports that signs and symptoms have been present for 1 day and indicates a pain score of 8/10. MEDICAL/SURGICAL HISTORY: . Thyroid disease. Dementia. GERD. Depression. Cholecystectomy. COMPARISON: No prior exams available for comparison. FINDINGS: Views of the right shoulder demonstrates mild degenerative changes. No fracture seen. No dislocation. Soft tissues are unremarkable. No radiopaque foreign bodies seen. CONCLUSION: No acute fracture Electronically signed by: Maksim Bansal MD 08/08/2017 6:47 PM EDT
--- NOTE | 2017-08-08 18:49 | RADRPT ---
EXAM DATE: 08/08/2017 6:41 PM EDT AGE/SEX: 82 years / Female INDICATIONS: Right hip pain after fall. CLINICAL DATA: This is the patient's initial encounter. Patient reports that signs and symptoms have been present for 1 day and indicates a pain score of 3/10. MEDICAL/SURGICAL HISTORY: . Thyroid disease. Dementia. GERD. Depression Cholecystectomy. COMPARISON: No prior exams available for comparison. FINDINGS: Views of the right hip demonstrates mild uterine changes. No fracture seen. Osteitis pubis. Soft tis sues are unremarkable. No radiopaque foreign bodies seen. CONCLUSION: Degenerative changes without fracture Electronically signed by: Maksim Bansal MD 08/08/2017 6:48 PM EDT
== END 2017-08-08 19:00 | disposition home or self-care (01) ==
LOC: PHEFT 17:53
DX: S40.011A Contusion of right shoulder, initial encounter (principal); S70.01XA Contusion of right hip, initial encounter; W01.0XXA Fall on same level from slipping, tripping and stumbling without subsequent striking against object, initial encounter; M35.3 Polymyalgia rheumatica; F32.9 Major depressive disorder, single episode, unspecified; F03.90 Unspecified dementia, unspecified severity, without behavioral disturbance, psychotic disturbance, mood disturbance, and anxiety; K21.9 Gastro-esophageal reflux disease without esophagitis; E03.9 Hypothyroidism, unspecified
CPT/HCPCS: 73030; 73502; 99283